=== PATIENT | female | born 1985 ===

== ENCOUNTER 2017-10-02 11:17 | Inpatient (IN) | payer OTHER ==
[~2017-10-02] VITALS: Ht 157.5 cm; Wt 86.2 kg
== END 2017-10-03 12:54 | disposition home or self-care (01) | DRG 775 ==
LOC: LDR 11:17 → SURH 19:50
PROC: 10E0XZZ Delivery of Products of Conception, External Approach (ICD-10-PCS; principal; 2017-10-02)
PROC: BY4CZZZ Ultrasonography of Second Trimester, Single Fetus (ICD-10-PCS; 2017-10-02)
PROC: 4A033R1 Measurement of Arterial Saturation, Peripheral, Percutaneous Approach (ICD-10-PCS; 2017-10-02)
DX: O60.13X0 Preterm labor second trimester with preterm delivery third trimester, not applicable or unspecified (principal); O34.32 Maternal care for cervical incompetence, second trimester; O34.12 Maternal care for benign tumor of corpus uteri, second trimester; Z3A.20 20 weeks gestation of pregnancy; Z37.1 Single stillbirth

== ENCOUNTER 2019-01-28 06:40 | Day surgery (SDC) | payer OTHER ==
[~2019-01-28 06:40] MED LIST: PRENATE ELITE1 EAC2 PO; PROGESTERONE200 MG PO
== END 2019-01-28 17:10 | disposition home or self-care (01) ==
LOC: CIR.AMB 06:40
DX: O34.31 Maternal care for cervical incompetence, first trimester (principal); Z3A.10 10 weeks gestation of pregnancy

== ENCOUNTER 2019-05-09 04:01 | Inpatient (IN) | payer OTHER ==
[~2019-05-09] VITALS: Ht 157.5 cm; Wt 87.5 kg
[2019-05-09] MEDS ORDERED: NIFEDIPINE20 MG PO (06:20)
[2019-05-09] MEDS ORDERED: INDOCIN25 MG/5 ML PO (06:22)
== END 2019-05-11 14:05 | disposition home or self-care (01) | DRG 768 ==
LOC: OB/GYN 04:01 → LDR 04:01 → OB/GYN 18:16
PROVIDERS: ADMIT Specialist
PROC: 0UQC0ZZ Repair Cervix, Open Approach (ICD-10-PCS; 2019-05-09)
PROC: BY4CZZZ Ultrasonography of Second Trimester, Single Fetus (ICD-10-PCS; 2019-05-09)
PROC: 4A1HXCZ Monitoring of Products of Conception, Cardiac Rate, External Approach (ICD-10-PCS; 2019-05-09)
PROC: 10E0XZZ Delivery of Products of Conception, External Approach (ICD-10-PCS; principal; 2019-05-09 13:45)
DX: O71.3 Obstetric laceration of cervix (principal); Z37.0 Single live birth; O60.02 Preterm labor without delivery, second trimester; O34.32 Maternal care for cervical incompetence, second trimester; O65.5 Obstructed labor due to abnormality of maternal pelvic organs; O26.842 Uterine size-date discrepancy, second trimester; Z3A.24 24 weeks gestation of pregnancy